=== PATIENT | male | born 1945 | race Caucasian/White ===

== ENCOUNTER → 2017-02-06 | Outpatient (CLI) | payer MEDICARE, BC ==
[~2017-02-06] MED LIST: ALPR1TAB2 PO; AMIO200T42 PO; ASPI-496 PO; ASPI-621 PO; ATOR80TA PO; ATOR80TA75 PO; CLOP75TA PO; DOCU-30 PO; ESOM40SU PO; FURO20TA3 PO; GLUC500T8 PO; KRIL500C PO; METO25TA35 PO; METO25TA35 PO/NG; METO25TA91 PO; MILK1POW PO; OXYC5TAB3 PO; PANT40TA5 PO; POTA10TA5 PO; REGADENOSON 0.4 MG/5 ML SYRINGE ONE; SUCR1ORA11 PO; TAMS-11 PO; TRIA0.25 PO
== END | disposition home or self-care (01) ==
LOC: CFH 08:40
PROVIDERS: ATTEND Nurse Practitioner Family
DX: I25.810 Atherosclerosis of coronary artery bypass graft(s) without angina pectoris (principal)
CPT/HCPCS: 78452; 93017; A9502; J2785

== ENCOUNTER 2019-05-26 07:34 | Outpatient (CLI) | payer MEDICARE, BC | END 2019-05-26 23:59 | disposition home or self-care (01) | LOC: CFH 07:34 | PROVIDERS: ATTEND Internal Medicine Cardiovascular Disease | DX: I25.89 Other forms of chronic ischemic heart disease (principal); I48.0 Paroxysmal atrial fibrillation; I25.810 Atherosclerosis of coronary artery bypass graft(s) without angina pectoris; Z95.1 Presence of aortocoronary bypass graft | CPT/HCPCS: 78452; 93017; A9502; J2785 ==